=== PATIENT | female | born 1940 | race Caucasian/White ===

== ENCOUNTER 2023-11-09 18:36 | Emergency (ER) | payer MEDICARE, BC, SELFPAY ==
[2023-11-09 18:48] VITALS: BP 141/70
[2023-11-09 20:00] VITALS: BP 137/70
--- NOTE | 2023-11-09 20:07 | ED.GENMED ---
History of Present Illness
<Mahi Patel PA-C - Last Filed: 11/09/23 21:46>
General
Chief Complaint: Ear Problem
Source: patient
Exam Limitations: none
Time Seen by Provider: 11/09/23 19:10
Nursing documentation reviewed up to this point in time: agreed with
History of Present Illness
History of Present Illness:
pt is a 83 y/o F with h/o dementia from [facility] [facility]
h/o remote L carotid endarterectomy
on baby aspirin
htn, hld
new memory care [facility] home after passed 7 weeks ago
woke up and was wincing in pain holding her L ear
the staff gave her 1000 mg tylenol which helped
then as the afternoon wore on she was looking more uncomfortable and for daughter who got ther eat 3 pm she was crying in pain an dwincing a few times a minute
they gave her mre tylenol and the daughter took her to urgent care where they told the pt that her ear looked ok but that she had a bruit and should go to the er
pt doesn't feel dizzy, have headache, fever, chills, swelling to ear, drinage from ear, new hearing loss or vision chnages
pt has not had any change in balance
no recent travel, no drainage from ear, no sore throat, no headache, no stroke symptoms
Past History
<Mahi Patel PA-C - Last Filed: 11/09/23 21:46>
Past History
ED Past Medical History: CVA, HTN, Hypercholesterolemia, Psychiatric (dementia) and Other (ckd)
Social History
Tobacco: Non-smoker
Review of Systems
<Mahi Patel PA-C - Last Filed: 11/09/23 21:46>
Review of Systems
Allergies reviewed?: Yes
All Other Systems: Not applicable
Phy Exam
<Mahi Patel PA-C - Last Filed: 11/09/23 21:46>
Physical Exam
Physical Exam:
GENERAL: Alert , in no apparent distress
EYE: pupils equal and reactive
NECK: Supple
very faint L carotid bruit appreciated
full painless ROM of neck
no scm tenderness
no paraspinal tendenress
no RENU
ENT: L auricle was very slighty pink, tender tragus which was not swollen or red, no mastoid tendneress
TM normal
canal slightly swollen
pharynx normal
L upper molar has some decay but is nontender, pt apparently has to have her cap replaced
no gingival swelling
CARDIAC: Regular rate and rhythm .
LUNGS: Clear breath sounds bilaterally, no acute respiratory distress, no wheezes/rales/rhonchi
NEUROLOGICAL: Alert and oriented, no focal neuro deficits
SKIN: Warm and dry, skin intact.
PSYCH: Normal and appropriate interaction.
Course
<Mahi Patel PA-C - Last Filed: 11/09/23 21:46>
Orders/Labs/Results
Orders:
Orders
11/09/23 20:07
Bedside Glucose- Treatment ONCE
Ciprofloxacin HCl [Cipro] 2 dropperett OTIC NOW STA
11/09/23 20:08
Bedside Glucose- Treatment ONCE
11/09/23 21:03
Acetaminophen [Tylenol] 1,000 mg PO NOW STA
Abnormal Lab Results
11/09/23
20:32
POC Glucose 113 H mg/dl
(70-99)
Vital Signs
Initial and Last Documented VS:
Initial Vital Signs
Temp Pulse Resp BP Pulse Ox
98.1 F 96 18 141/70 95
11/09/23 18:48 11/09/23 18:48 11/09/23 18:48 11/09/23 18:48 11/09/23 18:48
Last Documented Vital Signs
Temp Pulse Resp BP Pulse Ox
98.1 F 87 20 137/70 95
11/09/23 18:48 11/09/23 20:00 11/09/23 20:00 11/09/23 20:00 11/09/23 20:00
<Alexander Smith DO - Last Filed: 11/09/23 20:09>
Orders/Labs/Results
Orders:
Orders
11/09/23 20:07
Bedside Glucose- Treatment ONCE
Ciprofloxacin HCl [Cipro] 2 dropperett OTIC NOW STA
11/09/23 20:08
Bedside Glucose- Treatment ONCE
11/09/23 21:03
Acetaminophen [Tylenol] 1,000 mg PO NOW STA
Abnormal Lab Results
11/09/23
20:32
POC Glucose 113 H mg/dl
(70-99)
Vital Signs
Initial and Last Documented VS:
Initial Vital Signs
Temp Pulse Resp BP Pulse Ox
98.1 F 96 18 141/70 95
11/09/23 18:48 11/09/23 18:48 11/09/23 18:48 11/09/23 18:48 11/09/23 18:48
Last Documented Vital Signs
Temp Pulse Resp BP Pulse Ox
98.1 F 87 20 137/70 95
11/09/23 18:48 11/09/23 20:00 11/09/23 20:00 11/09/23 20:00 11/09/23 20:00
<Mahi Patel PA-C - Last Filed: 11/09/23 21:46>
MDM/Problems Addressed
Differential Diagnosis Includes:
otitis externa, TMJ, dentla pain, sinus pain, headche; musch less likely dissection, aneurysm
MDM/Problems Addressed:
83 y/o F
advanced dementia
here with L ear pain that seems to be coming and temo in waves
temporarily relieved with tylenol earlier today x 2 doses
seems to be better with heating pad this evening
but sent from because of a bruit they incidentally found on the same side
pt does seem to have tenderness to her tragus and maybe her auricle pinna is a little pink?? no mastoid tenderness, no fever
it is dificult to really rely on her history reported by her beuase of her dementia
but she really looks overall very comfortable
her TM is normal but her canal is swollen, no fluid in it
she has no neck pain, has full ROM and no RENU
mouth normal
doesnt have headache
pain better with heat on the ear an dtylenol
ti really does seem to be otalgia
seen by ed attneding who agreed
will covier with ciprodex drops (cipro rx written in case pharmacy dosesn' have ciprodex)
tyenol 3 time sa day
fu vascular for the bruit, unlikely to be conributory.
and with her age and dementia, daughter says she woul dbe very unlikely to have any kind of surgery
<Mahi Patel PA-C - Last Filed: 11/09/23 21:46>
*Critical Care Note
Total Time (30-74mins, 75-104mins- exclusive of procedures): Not Applicable
ED Attending Note
<Mahi Patel PA-C - Last Filed: 11/09/23 21:46>
-
Portions of this chart may have been created with voice recognition software.� Occasional wrong word or��sound alike� substitutions may have occurred due to the inherent limitations of voice recognition software.
<Alexander Smith DO - Last Filed: 11/09/23 20:09>
ED Attending Note
Patient seen and examined by attending physician: Yes
I performed the substantive portion of visit, reviewed & personally made and approve the management plan that is documented in note by myself or NAHEED.: Yes
ED Attending Note:
83-year-old female dementia patient type II diabetic external ear pain improved with Tylenol and a warm compress seen at urgent care referred here due to concern for carotid bruit looks well here pain is improved question of some external cellulitis
versus otitis externa, tympanic membrane looks okay
Discharge Plan
Departure
Patient Disposition: Home (Routine Discharge)
Date of Disposition: 11/09/23
Time of Disposition: 20:52
Patient with high blood pressure during this ER visit?: No
Condition: Fair
Covid-19: Not Applicable
Discharge Problem:
Acute otalgia, Acute Otitis Externa
Instructions: Outer Ear Infection (DC)
Prescriptions:
New
ciprofloxacin-dexamethasone [Ciprodex] 0.3-0.1 % drops,suspension
4 drp otic (ear) BID 7 Days Qty: 7.5 0RF
ciprofloxacin HCl 0.2 % dropperette
5 drp otic (ear) BID 7 Days Qty: 14 0RF
Referrals:
Ranjit Chaney MD [Active] - Follow up in 5-7 days (ENT)
Kelle Morrison MD [Active] - Follow up in 5-7 days (VASCULAR SURGERY)
Bg Wright MD [Family Provider] -
Activity Restrictions/Additional Instructions:
IT APPEARS THAT THERE IS PROBABLY AN OUTER EAR INFECTION
TRY CIPRODEX DROPS (SLIGHTLY BETTER THAN THE DROPS SHE GOT TONIGHT, HAS A STEROID IN IT)
4 DROPS L EAR TWICE A DAY FOR 7 DAYS
FOLLOW UP WITH EAR NOSE AND THROAT DOCTOR
TAKE TYLENOL 1000 MG 3 TIMES A DAY NEEDED FOR PAIN (NO MORE THAN 3000 MG PER DAY)
IF YOU CANNOT GET THE CIPRO-DEX DROPS, FILL THE PRESCRIPTION FOR THE REGULAR CIPRO DROPS INSTEAD.
RETURN FOR SWELLING, FEVER, REDNESS TO THE EAR, DRAINAGE, DIZZINESS, CONFUSION, HEADACHE OR NAY CONCERNS
FOLLOW UP WITH VASCULAR DOCTOR REGARDING THE BRUIT.
Interventions
Interventions:
*Risk Screen - Suicide Last Done: 11/09/23 21:18
*General Assessment Last Done: 11/09/23 18:48
*Neglect/Abuse Screening Last Done: 11/09/23 21:18
ED- Fall Risk Assessment Last Done: 11/09/23 21:18
*ED COVID-19 Vaccine History Last Done: 11/09/23 18:48
*Nursing Disposition Last Done: 11/09/23 21:18
Discharge Date and Time
Discharge Date/Time: 11/09/23 21:21
Print Language: IRISH
[2023-11-09] MEDS: CIPRO 2 DROPPERETT OTIC (20:25)
[2023-11-09 20:35] LABS: Glucose - Point of Care 113 mg/dl (70-99)
[2023-11-09] MEDS: TYLENOL 1000 MG PO (21:07)
== END 2023-11-09 21:21 | disposition home or self-care (01) ==
LOC: EMR 18:36
PROVIDERS: EMERGENCY PHYSICIAN Emergency Medicine; FAMILY PHYSICIAN Internal Medicine
DX: H60.92 Unspecified otitis externa, left ear (principal); H92.02 Otalgia, left ear; I12.9 Hypertensive chronic kidney disease with stage 1 through stage 4 chronic kidney disease, or unspecified chronic kidney disease; N18.9 Chronic kidney disease, unspecified; E78.00 Pure hypercholesterolemia, unspecified; F03.90 Unspecified dementia, unspecified severity, without behavioral disturbance, psychotic disturbance, mood disturbance, and anxiety
CPT/HCPCS: 99283; 82962